=== PATIENT | female | born 1960 | race Caucasian/White ===

== ENCOUNTER 2024-07-10 02:41 | Emergency (ER) | payer OTHER, SELFPAY ==
--- NOTE | ~2024-07-10 | XR_ITS ---
Portable chest x-ray Comparison: None Clinical History: Shortness of breath Findings: Lungs are clear, without focal consolidation or pleural effusion. Cardiomediastinal silho uette is unremarkable. Bones and soft tissues are unremarkable. Impression: Normal chest. Reviewed, dictated and finalized at location . Impression: Normal chest.
[2024-07-10 02:43] VITALS: BP 159/79; PULSE 106; RESP 25; TEMP 36.2; O2SAT 92
--- NOTE | 2024-07-10 02:45 | ECG_ITS ---
Test Date: 2024-07-10 02:52:14 Measurements Intervals [place] Rate: 106 P: 83 NC: 126 QRS: 69 QRSD: 82 T: 72 QT: 327 QTc: 435 Interpretive Statements SINUS TACHYCARDIA BORDERLINE ST-T WAVE ABNORMALITY- LAT/HIGH LAT LEADS BASELINE ARTIFACT- I, II, III, AVR, AVL, AVF, V1-V6 ABNORMAL ECG No previous ECG available for comparison Electronically Signed On 07-10-2024 06:26:21 CDT by Dar Tapia D.O.
[2024-07-10 02:50] VITALS: BP 162/69; PULSE 106; RESP 22; O2SAT 93
[2024-07-10 03:11] LABS: Basophils Absolute Auto 0.1 K/mm3 (0.0-0.1); Basophils Percent Auto 1.2 % (0.2-1.2); Eosinophils Absolute Auto 0.7 K/mm3 (0-0.3); Eosinophils Percent Auto 7.4 % (0-4.4); Hematocrit 45.1 % (37.0-47.0); Hemoglobin 15.7 g/dL (12.0-15.0); Immature Granulocyte Absolute 0.04 K/mm3 (0.00-0.031); Immature Granulocyte Percent A 0.4 % (0-0.5); Lymphocytes Absolute Auto 3.64 K/mm3 (0.9-3.2); Lymphocytes Percent Auto 36.3 % (18.3-44.2); Mean Corpuscular HGB Conc 34.8 g/dl (32-36); Mean Corpuscular Hemoglobin 32.2 pg (26-34); Mean Corpuscular Volume 92.4 fl (80-100); Mean Platelet Volume 9.4 fl (7.4-10.4); Monocytes Absolute Auto 0.8 K/mm3 (0.1-0.6); Monocytes Percent Auto 8.1 % (2.6-8.5); Neutrophils Absolute Auto 4.7 K/mm3 (1.3-6.7); Neutrophils Percent Auto 46.6 % (45.5-73.1); Platelet Count Result 266 k/mm3 (150-375); Red Blood Count 4.88 M/mm3 (4.2-5.4); Red Cell Distribution Width 13.2 % (11.5-14.5)
[2024-07-10 03:19] LABS: Alanine Aminotransferase 26 U/L (6-35); Albumin Level 4.2 g/dL (3.5-5.1); Alkaline Phosphatase 104 U/L (38-126); Anion Gap 10 mmol/L (4-12); Aspartate Amino Transferase 29 U/L (14-36); Bilirubin,Total 0.5 mg/dL (0.2-1.3); Blood Urea Nitrogen 14 mg/dL (7-17); Carbon Dioxide 24 mmol/L (22-30); Chloride 103 mmol/L (98-107); Estimated CRCL calculation 52 ml/min; Estimated Glomerular Filt Rate > 60; Glucose 134 mg/dL (65-110); Potassium 4.1 mmol/L (3.4-5.0); Sodium 137 mmol/L (137-145)
[2024-07-10] MEDS: IPRATROPIUM BR 0.02% INH SOLN 0.5 MG/2.5 ML VIAL 1 MG INHALATION (04:06)
[2024-07-10] MEDS: ALBUTEROL SULFATE NEB 2.5 MG/3 ML INH 10 MG INHALATION (04:06)
[2024-07-10 04:09] VITALS: PULSE 95; RESP 18
[2024-07-10] MEDS: methylPREDNISolone SOD SUCC 125 MG VIAL IV PUSH (04:48)
[2024-07-10] MEDS: SODIUM CHLORIDE 0.9% IV 1,000 ML 999 ML IV CONT (04:49)
[2024-07-10] MEDS: MAGNESIUM SULF 2 GM/WATER 50ML 2 GM/50 ML BAG IVPB (04:50)
[2024-07-10 05:12] VITALS: PULSE 104; RESP 24
--- NOTE | 2024-07-10 05:19 | ED.SOB ---
HPI - SOB/Dyspnea General Chief Complaint: Shortness of Breath/Dyspnea Stated Complaint: Can't breath Time Seen by Provider: 07/10/24 03:42 History of Present Illness HPI Narrative: 64-year-old female with a past medical history significant for asthma, COPD. She presents to the emergency department his chief complaint of difficulty breathing for last 2 weeks. She has nebulizer inhalers at home but has not been using them at home. Denies any chest pain or fevers, rigors or chills. Was otherwise in her normal state of health. Took COVID test at home that were negative. Does not have any cough or pleuritic chest pain. No recent injuries or illnesses. Related Data Allergies Allergy/AdvReac Type Severity Reaction Status Date / Time ciprofloxacin Allergy Unknown itching Verified 07/30/19 10:34 Review of Systems Review of Systems: As reviewed above Exam Narrative: GENERAL: [Well-appearing, well-nourished, and in no acute distress.] HEAD: [Normocephalic, atraumatic.] EYES: [PERRLA and EOMI.] ENT: Nares clear, no rhinorrhea or epistaxis. Mucous membranes moist. NECK: Supple. CHEST: Coarse breath sounds bilaterally with end-expiratory wheezing and a prolonged expiratory phase, symmetric chest rise HEART: [Regular rate and rhythm]. No murmur heard. [Normal peripheral pulses.] ABDOMEN: [Soft, nondistended], [nontender], [No rigidity or guarding] EXTREMITIES: Normal range of motion. [No edema.] SKIN: Warm, dry, no rash. NEURO: [No focal deficits]. Alert and oriented [x3.] PSYCH: [Normal mood and affect.] Course Vital Signs Vital signs: Vital Signs Temperature 36.2 C L 07/10/24 02:43 Pulse Rate 106 H 07/10/24 02:43 Respiratory Rate 25 H 07/10/24 02:43 Blood Pressure 159/79 H 07/10/24 02:43 Pulse Oximetry 92 07/10/24 02:43 Oxygen Delivery Room Air 07/10/24 02:43 Temperature 36.2 C L 07/10/24 02:43 Pulse Rate 104 H 07/10/24 05:12 Respiratory Rate 24 H 07/10/24 05:12 Blood Pressure 162/69 H 07/10/24 02:50 Pulse Oximetry 93 07/10/24 02:50 Oxygen Delivery Room Air 07/10/24 02:50 MDM - SOB/Dyspnea MDM Narrative Medical decision making narrative: 64-year-old female with history of COPD and asthma who presents with what appears to be a COPD exacerbation. She is complaining of dyspnea for last several weeks and has very coarse breath sounds on auscultation with a prolonged expiratory phase. These are audible throughout both lung courtney. She was initially tachypneic and tachycardic but when settle down her room had improvement her vital signs. No significant blood pressure concerns or hypoxia. She is afebrile. Not endorsing any chest pain, nausea, vomiting, diarrhea, constipation. Workup was ordered and shows no leukocytosis or anemia. Chemistry panel within normal limits. Normal renal and hepatic function panel. Chest x-ray independently reviewed by myself shows no obvious consolidations but some possible haziness to the right lung, no pneumothorax or pleural effusions. Electrocardiogram shows sinus tachycardia but no ST segment elevations, depressions or inversions. Patient was started on continuous nebulized albuterol and ipratropium, given magnesium sulfate of fluid bolus and Solu-Medrol. Was frequently re-evaluated had significant improvement her respiratory efforts. She had more clear breath sounds bilaterally and was expressing significant improvement in her symptoms. At this time patient is feeling significantly improved expressing desire for discharge. She will be sent home with prescription medications including steroids, refill for albuterol inhaler, Z-Tony. Patient expressed understanding of the need for close outpatient follow-up and felt comfortable going home at this time. Lab Data 07/10/24 03:04 07/10/24 03:04 Labs: Lab Results 07/10/24 Range/Units 03:04 WBC 10.0 (4.5-10.0) K/mm3 RBC 4.88 (4.2-5.4) M/mm3 Hgb 15.7 H (12.
[2024-07-10 05:59] VITALS: BP 143/62; PULSE 88; RESP 16; O2SAT 97
== END 2024-07-10 06:01 | disposition home or self-care (01) ==
PROVIDERS: Emergency Provider Student in an Organized Health Care Education/Training Program; PCP Family Medicine
DX: J44.1 Chronic obstructive pulmonary disease with (acute) exacerbation (principal); R00.0 Tachycardia, unspecified; R94.31 Abnormal electrocardiogram [ECG] [EKG]
CPT/HCPCS: 36415; 71045; 80053; 85025; 93005; 94640; 96365; 96375; 99284; J2919; J3475; J7030